=== PATIENT | male | born 1965 | race Hispanic/Latino ===

== ENCOUNTER 2017-10-07 09:13 | Day surgery (SDC) | payer BC ==
[~2017-10-07] VITALS: Ht 165.1 cm; Wt 85.3 kg
[~2017-10-07 09:13] MED LIST: SODIUM CHLORIDE 0.9% 1000ML 1,000 ML IV ONE
[2017-10-07 10:05] VITALS: BP 123/72
[2017-10-07] MEDS ORDERED: MEPERIDINE-PF 50 MG/ML SYG ONE (12:08)
[2017-10-07] MEDS ORDERED: MIDAZOLAM HCL 1 MG/ML 2ML VIAL ONE (12:09)
[2017-10-07 12:33] VITALS: BP 84/44
== END 2017-10-07 13:05 | disposition home or self-care (01) ==
LOC: DAH 09:13
PROVIDERS: ATTEND Internal Medicine Gastroenterology
DX: Z12.11 Encounter for screening for malignant neoplasm of colon (principal); Z68.37 Body mass index [BMI] 37.0-37.9, adult
CPT/HCPCS: 45378; A4606; J2175; J2250; J7030; 99152; 99153